=== PATIENT | male | born 1970 | race Caucasian/White ===

== ENCOUNTER 2023-08-22 21:13 | Inpatient (IN) | payer MEDICAID, SELFPAY ==
[2023-08-22 21:35] VITALS: BP 150/85; PULSE 84; RESP 16; TEMP 36.2; O2SAT 96
[2023-08-22 23:12] VITALS: BMI 27.6
--- NOTE | 2023-08-23 01:58 | PC.ADMIT ---
Maverick Goetz is a 53yo male, admitted to the unit from [facility] on CV for treatment of substance use disorder and unspecified depression. He presented to the hospital after almost fainting at [employer]. He reports that the [place] government was following him and attempting to kill him last night. Maverick is alert and oriented x4, visible and social with staff. He reports high anxiety due to leaving his dog alone in the house. States that I am worried about my dog being alone in the house for 24 hrs and I have no one to call to look after him . Pt did not sign release of information forms for individual/family, health insurance, Psychiatrist and therapist. He states that I don't have family/friends, I live alone with my dog . He reports that he is here to receive treatment for depression and cocaine/alcohol addiction. He denies SI/HI/AVH, reports being safe on the unit. Skin check done, treatment plans and safety tools initiated but not signed. Addiction and hospitalist consult ordered.
[2023-08-23 08:09] LABS: Alanine Aminotransferase 22 U/L (0-40); Alkaline Phosphatase 78 U/L (39-117); Anion Gap 10 (12-20); Aspartate Amino Transferase 23 U/L (5-37); Bilirubin Total 0.5 mg/dL (0.0-1.0); Blood Urea Nitrogen 8 mg/dL (9-16); Calcium 9.6 mg/dL (8.4-10.2); Carbon Dioxide 29 mmol/L (22-29); Chloride 107 mmol/L (96-108); Cholesterol 149 mg/dL (<200); Creatinine Clr Calc Pharmacy 133.7; Estimated Glomerular Filt Rate > 60; Glucose Fasting 108 mg/dL (60-99); HDL Cholesterol 48 mg/dL (>40); LDL Cholesterol Calculated 90 mg/dL (<100); Sodium 142 mmol/L (135-145); Total Protein 7.2 g/dL (6.5-8.0); Triglycerides 56 mg/dL (<150)
[2023-08-23 08:25] LABS: Estimated Average Glucose 88 mg/dL; Hemoglobin A1c % 4.7 % (<6.0)
[2023-08-23] MEDS: Multivitamin TABLET 1 TAB PO (08:59)
[2023-08-23] MEDS: Thiamine HCL 100 MG TABLET PO (08:59)
[2023-08-23] MEDS: Folic Acid 1 MG TABLET PO (08:59)
[2023-08-23 09:48] VITALS: BP 144/93; PULSE 86; RESP 20; TEMP 36.5; O2SAT 97
--- NOTE | 2023-08-23 10:55 | P.HPPS_ITS ---
[facility] Date of Service: 08/23/23 Chief Complaint: Depression Sources of Information: patient interviewed and chart reviewed HPI Subjective Notes: [place] Warning and 3 Day Narrative: [facility] Direct Admission and noted behavioral health consult while there: At their ED after concern by bystanders at local [employer] for feeling like he might pass out, endorsed heavy alcohol use daily and also cocaine. Last drink was 08/21/23. Also paranoid [employer] following/tracking trying to kill him which is way he was dizzy. Stated they needed to call the FBI. He was hacked after using websites for drugs. Fears will be killed if discharged. Wants treatment for dual diagnosis and also depression. Denied SI. Today: Reports hoping to get help as he feels like he has been on a hamster wheel of being depressed, anxious and irritable, utilizing alcohol and cocaine, feeling good, then feeling depressed anxious and irritable and therefore utilizing substances again. Also reports being concerned about his dog who is at home. Is calling people that he can remember their telephone numbers as he does not have access to his fall. Reports feeling positive regarding current care environment. Reports wanting to get help and try and understand what happened. Do reports he has been drinking 3-10 drinks and evening and usually on the higher end if he uses cocaine which is approximately 1 time per week by snorting. No IV drug use. Reports that the person he gets his cocaine from, utilizes test strips and therefore is confident there is no fentanyl in this. Reports he had also not slept for at least 2 days prior to recent events. Reported that he had been having conversations with Bobby in the last couple of days, and has been questioning what has been real and what is not been real and feels embarrassed regarding his comments on being tracked or targeted by the [employer]. Appreciates now that his symptoms are substance and withdrawal related combined with poor sleep. He does not have any psychotic symptoms. Adamantly denies suicidal thoughts. Feeling safe in supported. Past psychiatric history: Endorses being on Wellbutrin and Adderall in the past for ADHD. Reports Wellbutrin was not helpful. Endorses history of anxiety symptoms and low mood. Unclear how pervasive low mood has been in the past. Periods of sobriety have lasted between 45 and 60 days at a time over the last 4 years. Reports drug and alcohol use increased significantly during COVID. Never been to AA or NA, but reports likely pursuing these as what he is doing currently has not been helpful. Does not feel like he needs rehab. Also does not feel that naltrexone, Antabuse or acamprosate are needed currently. Is open to medications for mood. Social history: Rents and lives alone. Has a dog. 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 No legal issues. 23-year-old daughter with limited communication. in 2004. Single. Does endorse a trauma history, but did not want to elaborate on same. Past Psychiatric History: Endorses being on Wellbutrin and Adderall in the past for ADHD. Reports Wellbutrin was not helpful. Endorses history of anxiety symptoms and low mood. Unclear how pervasive low mood has been in the past. Periods of sobriety have lasted between 45 and 60 days at a time over the last 4 years. Reports drug and alcohol use increased significantly during COVID. Never been to AA or NA, but reports likely pursuing these as what he is doing currently has not been helpful. Does not feel like he needs rehab. Also does not feel that naltrexone, Antabuse or acamprosate are needed currently. Is open to medications for mood Medical Evaluation Reviewed: Hospitalist Jamar Pending Labwork from [facility], unrelarkable, but no tox or BAL level noted. EKG QTC 451 PMFSH Family History: Unclear if sister by suiide. Social History: Rents and lives alone. Has a dog. 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 No legal issues. 23-year-old daughter with limited communication. in 2004. Single. Substance History: Alcohol and cocaine use disorder. Periods of sobriety have lasted between 45 and 60 days at a time over the last 4 years. Reports drug and alcohol use increased significantly during COVID. Never been to AA or NA, but reports likely pursuing these as what he is doing currently has not been helpful. Does not feel like he needs rehab. Also does not feel that naltrexone, Antabuse or acamprosate are needed currently. Trauma History: Does endorse a trauma history, but did not want to elaborate on same. Diagnostics Vital Signs (24Hr): Vital Signs - 24 hr 08/22/23 21:35 08/23/23 09:48 Temperature 97.2 F 97.7 F Pulse Rate 84 86 Respiratory Rate 16 20 Blood Pressure 150/85 H 144/93 H Pulse Oximetry 96 97 Oxygen Delivery Method Room Air Room Air BMI result Body Mass Index 27.6 Labs 08/23/23 07:22 Labs: Laboratory Results - last 48 hr 08/23/23 07:22 Sodium 142 Potassium 4.0 Chloride 107 Carbon Dioxide 29 Anion Gap 10 L BUN 8 L Creatinine 0.73 Estim Creat Clear Calc 133.7 Estimated GFR > 60 Fasting Glucose 108 H Estimat Average Glucose 88 Hemoglobin A1c % 4.7 Calcium 9.6 Total Bilirubin 0.5 AST 23 ALT 22 Alkaline Phosphatase 78 Total Protein 7.2 Albumin 4.0 Triglycerides 56 Cholesterol 149 LDL Cholesterol, Calc 90 HDL Cholesterol 48 Meds/Allergies Meds Home Medications Medication Instructions Recorded Confirmed Type No Known Home Meds 08/23/23 08/23/23 History Allergies Allergies Allergy/AdvReac Type Severity Reaction Status Date / Time Penicillins Allergy Anaphylaxis Verified 08/22/23 21:51 Mental Status Exam Mental Status Exam Narrative: pleasant. Engaged. Hospital clothing. Self clarify fair. Alert and oriented. No evidence of withdrawal. Largely euthymic. Does appear to be reflective. No SI or HI. No agitation or psychosis. Insight and judgment fair Assessment & Plan Assessment & Plan (1) Mood disorder: Status: Acute Code(s): F39 - Unspecified mood [affective] disorder (2) Alcohol use disorder: Status: Acute Code(s): F10.90 - Alcohol use, unspecified, uncomplicated (3) Cocaine use disorder: Status: Acute Code(s): F14.10 - Cocaine abuse, uncomplicated Plan presents as a direct admission from [facility] Emergency Room. Presents with alcohol use disorder and cocaine use disorder and associated psychotic symptoms, that have resolved. Does appear to have an underlying mood disorder and reports a comorbid diagnosis of ADHD. Education provided around diagnosis and symptoms prior to admission. Is open to NA and AA, but not rehab or medications for substance use disorder. Is open to medications for a mood disorder. Did not respond to Wellbutrin in the past. We did discuss Strattera as a potential option given ADHD history. Was open to this. Also discussed Seroquel as needed, should he experience anxiety symptoms or psychotic symptoms. Did submit his three-day notice. Patient educated on: diagnosis, medication risk/benefits, substance abuse and therapeutic strategies Informed Consent: understands Reason for continued inpatient stay Substantial Risk for: rapid decompensation Statement Statement: I have reviewed the history and physical and performed a pertinent examination on my patient. No changes have occurred unless specified. If the History and Physical was not performed prior to admission, the Hospitalist's service will be consulted for completing the admission physical. Time Spent With Patient Time: Total time managing care of this patient today ____ minutes.
--- NOTE | 2023-08-23 13:49 | HO.PM.IMCN ---
History of Present Illness Data of Consult Service Date: 08/23/23 Primary Care Provider: None Physician HPI Reason for consult: Admission H&P Pt is a 53-year-old male with until reported PMH currently not home medications who is admitted to psychiatry unit for substance use, stress, depression, and paranoia. Patient apparently almost fainted while at [employer] and reported to EMS that the [employer] government was following him and trying to kill him. Medical consult for admission H&P. ?Patient seen at bedside where he is resting during the afternoon. Patient denies any chronic medical conditions, and reports not being on any home medications. States he is ?groggy? and would like to defer any further interview and examination. Reports he does have chronic lower back pain which is at baseline, but denies any acute medical complaints.Labs reviewed, grossly unremarkable. Review of Systems Review of Systems: Chronic lower back pain at baseline Denies any acute medical complaints at this time [facility] Social History Household Members: None Housing: House Do you presently have visiting nurse or other home services: No Patient Tobacco Use Status: Current someday Tobacco user Tobacco use type: Cigar Smoked in Last 30 Days: Yes e-Cigarette/Vaping Use: Never Used Patient Interested in Nicotine Replacement: No Patient Given Instructions on How to Stop Smoking: No Second Hand Smoke Exposure: No Use of substances other than those prescribed or required for medical reasons: Yes Substance Use Type: Crack/Cocaine, Marijuana and Caffiene Substance Use Frequency: Weekly Last Used Substance: Days (ago) Currently Displaying Signs/Symptoms of Drug Intoxication Withdrawal: No Any prior treatment program specific to substance use: No Have you been hit, kicked, punched, or otherwise hurt by someone within the past year? If so, by whom?: No Do you feel safe in your current relationship?: No Current Relationship Is there a partner from a previous relationship who is making you feel unsafe now?: No Are you made to feel afraid or neglected: No Advance Directives: No Advance Directives Information Provided: No Advance Directives on File: No Do you have thoughts of harming others: None Do you have a plan to hurt others: No Plan Recently lost weight without trying: No Nutrition Risks: No Nutritional Risk Poor oral hygiene: No Meds Allergies Allergy/AdvReac Type Severity Reaction Status Date / Time Penicillins Allergy Anaphylaxis Verified 08/22/23 21:51 Active Medications: Current Medications Acetaminophen (Acetaminophen 325 Mg Tablet) 650 mg PO Q6H PRN PRN Reason: Headache/Pain Mild Scale (1-3) Al Hydroxide/Mg Hydroxide (Magnesium Hydrox/Alum Hydrox 30 Ml Oral.Susp) 30 ml PO Q6H PRN PRN Reason: Heartburn/Nausea Folic Acid (Folic Acid 1 Mg Tablet) 1 mg PO DAILY [facility] Last Admin: 08/23/23 08:59 Dose: 1 mg Hydroxyzine HCl (Hydroxyzine Hcl 25 Mg Tablet) 25 mg PO Q6H PRN PRN Reason: Anxiety Lorazepam (Lorazepam 1 Mg Tablet) 1 mg PO Q2H PRN PRN Reason: CIWA 6-10 Lorazepam (Lorazepam 1 Mg Tablet) 2 mg PO Q2H PRN PRN Reason: CIWA 11 and above Magnesium Hydroxide (Milk Of Magnesia 30 Ml Oral.Susp) 30 ml PO DAILY PRN PRN Reason: Constipation Multivitamins/Vitamin C (Multivitamin Tablet) 1 tab PO DAILY [facility] Last Admin: 08/23/23 08:59 Dose: 1 tab Nicotine (Nicotine 21 Mg Patch.Td24) 21 mg TRANSDERMA DAILY PRN PRN Reason: smoking cessation Nicotine Polacrilex (Nicotine Polacrilex 2 Mg Gum) 4 mg BUCCAL Q2H PRN PRN Reason: Nicotine Cravings Olanzapine (Olanzapine 5 Mg Tablet) 5 mg PO TID PRN PRN Reason: agitation Thiamine HCl (Thiamine Hcl 100 Mg Tablet) 100 mg PO DAILY [facility] Last Admin: 08/23/23 08:59 Dose: 100 mg Trazodone HCl (Trazodone Hcl 50 Mg Tablet) 50 mg PO BEDTIME MRX1 PRN PRN Reason: Insomnia Home Medications Medication Instructions Recorded Confirmed Last Taken Type No Known Home Meds 08/23/23 08/23/23 Unknown History Physical Exam Vital Signs and Narrative: Vital Signs: Last Vital Signs Temp 97.7 F 08/23/23 09:48 Pulse 86 08/23/23 09:48 Resp 20 08/23/23 09:48 BP 144/93 H 08/23/23 09:48 Pulse Ox 97 08/23/23 09:48 O2 Del Method Room Air 08/23/23 09:48 BMI result Body Mass Index 27.6 Patient defers physical examination Results Labs 08/23/23 07:22 Labs: Laboratory Results - last 24 hr 08/23/23 07:22 Anion Gap 10 L Estim Creat Clear Calc 133.7 Estimated GFR > 60 Fasting Glucose 108 H Estimat Average Glucose 88 Hemoglobin A1c % 4.7 Calcium 9.6 Total Bilirubin 0.5 AST 23 ALT 22 Alkaline Phosphatase 78 Total Protein 7.2 Albumin 4.0 Triglycerides 56 Cholesterol 149 LDL Cholesterol, Calc 90 HDL Cholesterol 48 Assessment and Plan (1) Medical clearance for psychiatric admission: Status: Acute Plan Pt is a 53-year-old male with until reported PMH currently not home medications who is admitted to [facility] psychiatry unit for substance use, stress, depression, and paranoia. Patient apparently almost fainted while at [employer] and reported to EMS that the [employer] was following him and trying to kill him. Medical consult for admission H&P. Mood disorder Plan as per Psychiatry Chronic lower back pain Acetaminophen Patient otherwise denies any acute medical complaints or chronic medical conditions. Thank you for allowing us to participate in the care of this patient. Signing off at this time. Please re-consult if any acute complaints or issues arise.
[2023-08-23 19:50] VITALS: BP 155/86; PULSE 74; RESP 16; TEMP 36.1; O2SAT 96
[2023-08-23] MEDS: traZODone HCL 50 MG TABLET PO (21:41)
[2023-08-24] MEDS: Thiamine HCL 100 MG TABLET PO (08:40)
[2023-08-24] MEDS: Multivitamin TABLET 1 TAB PO (08:40)
[2023-08-24] MEDS: Folic Acid 1 MG TABLET PO (08:40)
[2023-08-24] MEDS: hydrOXYzine HCL 25 MG TABLET PO ×2 (09:53→18:24)
[2023-08-24 09:58] VITALS: BP 136/84; PULSE 77; RESP 20; TEMP 36.6; O2SAT 96
--- NOTE | 2023-08-24 14:13 | P.PNPSI_ITS ---
Subjective Subjective Date of Service: 08/24/23 Reason For Visit: Depression Subjective Notes: 3 Day Medical Problems Affecting Mental Status: No Interim History: Met with pt and d/w nursing. Slept well. Reflecting on admission and substance related psychosis with some embarrassment. Mood stable. No psychosis. Strattera non formulary, sos did not start dame. Pt preferred no meds for now and review same after sobriety and trying NA/AA after discharge Medication Compliance: Yes Side effects from medications: No Attending Groups: Intermittent Review of Systems Acute medical concerns: No Review of Systems Review of Systems Yes all other systems are reviewed and are negative Mental Status Exam Mental Status Exam Narrative: pleasant. Engaged. Hospital clothing. Self clarify fair. Alert and oriented. No evidence of withdrawal. Euthymic. Reflective. No SI or HI. No agitation or psychosis. Insight and judgment fair Diagnostics Vital Signs (24Hr): Vital Signs - 24 hr 08/23/23 19:50 08/24/23 09:58 Temperature 97 F 97.8 F Pulse Rate 74 77 Respiratory Rate 16 20 Blood Pressure 155/86 H 136/84 Pulse Oximetry 96 96 Oxygen Delivery Method Room Air Room Air BMI result Body Mass Index 27.6 Labs 08/23/23 07:22 Labs: Laboratory Results - last 48 hr 08/23/23 07:22 Sodium 142 Potassium 4.0 Chloride 107 Carbon Dioxide 29 Anion Gap 10 L BUN 8 L Creatinine 0.73 Estim Creat Clear Calc 133.7 Estimated GFR > 60 Fasting Glucose 108 H Estimat Average Glucose 88 Hemoglobin A1c % 4.7 Calcium 9.6 Total Bilirubin 0.5 AST 23 ALT 22 Alkaline Phosphatase 78 Total Protein 7.2 Albumin 4.0 Triglycerides 56 Cholesterol 149 LDL Cholesterol, Calc 90 HDL Cholesterol 48 Medications Medications Current Medications Acetaminophen (Acetaminophen 325 Mg Tablet) 650 mg PO Q6H PRN PRN Reason: Headache/Pain Mild Scale (1-3) Al Hydroxide/Mg Hydroxide (Magnesium Hydrox/Alum Hydrox 30 Ml Oral.Susp) 30 ml PO Q6H PRN PRN Reason: Heartburn/Nausea Folic Acid (Folic Acid 1 Mg Tablet) 1 mg PO DAILY [facility] Last Admin: 08/24/23 08:40 Dose: 1 mg Hydroxyzine HCl (Hydroxyzine Hcl 25 Mg Tablet) 25 mg PO Q6H PRN PRN Reason: Anxiety Last Admin: 08/24/23 09:53 Dose: 25 mg Lorazepam (Lorazepam 1 Mg Tablet) 1 mg PO Q2H PRN PRN Reason: CIWA 6-10 Lorazepam (Lorazepam 1 Mg Tablet) 2 mg PO Q2H PRN PRN Reason: CIWA 11 and above Magnesium Hydroxide (Milk Of Magnesia 30 Ml Oral.Susp) 30 ml PO DAILY PRN PRN Reason: Constipation Multivitamins/Vitamin C (Multivitamin Tablet) 1 tab PO DAILY [facility] Last Admin: 08/24/23 08:40 Dose: 1 tab Nicotine (Nicotine 21 Mg Patch.Td24) 21 mg TRANSDERMA DAILY PRN PRN Reason: smoking cessation Nicotine Polacrilex (Nicotine Polacrilex 2 Mg Gum) 4 mg BUCCAL Q2H PRN PRN Reason: Nicotine Cravings Quetiapine Fumarate (Quetiapine Fumarate 50 Mg Tablet) 50 mg PO Q6H PRN PRN Reason: psychosis Thiamine HCl (Thiamine Hcl 100 Mg Tablet) 100 mg PO DAILY [facility] Last Admin: 08/24/23 08:40 Dose: 100 mg Trazodone HCl (Trazodone Hcl 50 Mg Tablet) 50 mg PO BEDTIME MRX1 PRN PRN Reason: Insomnia Last Admin: 08/23/23 21:41 Dose: 50 mg Allergies Allergies Allergy/AdvReac Type Severity Reaction Status Date / Time Penicillins Allergy Anaphylaxis Verified 08/22/23 21:51 Assessment & Plan Assessment & Plan (1) Medical clearance for psychiatric admission: Status: Acute Code(s): Z00.8 - Encounter for other general examination (2) Mood disorder: Status: Acute Code(s): F39 - Unspecified mood [affective] disorder (3) Alcohol use disorder: Status: Acute Code(s): F10.90 - Alcohol use, unspecified, uncomplicated (4) Cocaine use disorder: Status: Acute Code(s): F14.10 - Cocaine abuse, uncomplicated Plan Presents as a direct admission from [facility] Emergency Room. Presents with alcohol use disorder and cocaine use disorder and associated psychotic symptoms, that have resolved. Does appear to have an underlying mood disorder and reports a comorbid diagnosis of ADHD. Education provided around diagnosis and symptoms prior to admission. Is open to NA and AA, but not rehab or medications for substance use disorder. Is open to medications for a mood disorder. Did not respond to Wellbutrin in the past. We did discuss Strattera as a potential option given ADHD history. Was open to this. Also discussed Seroquel as needed, should he experience anxiety symptoms or psychotic symptoms. Did submit his three-day notice. 08/23: gideon non formulary, sos did not start dame. Pt preferred no meds for now and review same after sobriety and trying NA/AA after discharge Reason for continued inpatient stay Substantial Risk for: rapid decompensation Time Spent With Patient Time: Total time managing care of this patient today ____ minutes.
--- NOTE | 2023-08-24 15:23 | MHC.RECOVRN ---
Received referral for ACS consult for pt. due to ETOH and cocaine use. T/W went to pt's room where he was resting. He reports that he is interested in recovery services but would like to defer until tomorrow as I had a lot of people in here today and I am tired. Report to ACS team for f/u.
[2023-08-24 19:45] VITALS: BP 151/94; PULSE 94; RESP 16; TEMP 36.8; O2SAT 96
[2023-08-24] MEDS: traZODone HCL 50 MG TABLET PO ×2 (21:46→23:27)
[2023-08-24] MEDS: Nicotine Polacrilex 2 MG GUM 4 MG BUCCAL (21:46)
[2023-08-24] MEDS: QUEtiapine Fumarate 50 MG TABLET PO (23:27)
[2023-08-25 08:31] VITALS: BP 142/78; PULSE 66; RESP 16; TEMP 36.4; O2SAT 96
[2023-08-25] MEDS: Folic Acid 1 MG TABLET PO (11:03)
[2023-08-25] MEDS: Thiamine HCL 100 MG TABLET PO (11:03)
[2023-08-25] MEDS: Multivitamin TABLET 1 TAB PO (11:03)
[2023-08-25] MEDS: diazePAM 5 MG TABLET PO (12:11)
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
[2023-08-25] MEDS: Nicotine Polacrilex 2 MG GUM 4 MG BUCCAL ×2 (18:04→20:43)
[2023-08-25] MEDS: LORazepam 1 MG TABLET PO ×2 (18:11→20:54)
[2023-08-25 20:28] VITALS: BP 156/88; PULSE 84; RESP 18; TEMP 36.7; O2SAT 96
--- NOTE | 2023-08-25 20:29 | MHC.RECOVSUP ---
assistant cross country coach met with this pt an discussed treatment options, RC provided this patient with contact information as this patient is going back home after his inpatient treatment here at [facility] in [place], [place]. I informed this pt to call me tomorrow so I can research what places he can enroll in when he goes back to [place].
[2023-08-25 22:45] VITALS: BP 138/86
[2023-08-25] MEDS: QUEtiapine Fumarate 50 MG TABLET PO (23:06)
[2023-08-25] MEDS: traZODone HCL 50 MG TABLET PO (23:06)
[2023-08-26 07:37] VITALS: BP 116/75; PULSE 65; RESP 14; TEMP 36.4; O2SAT 95
[2023-08-26] MEDS: Folic Acid 1 MG TABLET PO (09:29)
[2023-08-26] MEDS: Thiamine HCL 100 MG TABLET PO (09:29)
[2023-08-26] MEDS: Multivitamin TABLET 1 TAB PO (09:29)
[2023-08-26] MEDS: hydrOXYzine HCL 25 MG TABLET PO ×2 (13:10→20:13)
[2023-08-26] MEDS: Nicotine Polacrilex 2 MG GUM 4 MG BUCCAL ×4 (13:14→23:13)
--- NOTE | 2023-08-26 15:50 | P.PNPSI_ITS ---
Subjective Subjective Date of Service: 08/26/23 Reason For Visit: Depression Interim History: calm, cooperative. did not receive med ed sheets for zoloft and naltrexone yesterday. discuss end of alcohol detox. pt pleased with program here. per staff, brighter, guarded. CIWAs 1, 4, 1, 8, 4 in the past day. taking meds. affect broad on eves. Mental Status Exam Mental Status Exam Narrative: pleasant. Engaged. street clothes. Alert and oriented. No evidence of withdrawal. Euthymic. Reflective. No SI or HI. No agitation or psychosis. Insight and judgment fair Diagnostics Vital Signs (24Hr): Vital Signs - 24 hr 08/25/23 20:28 08/25/23 22:45 08/26/23 07:37 Temperature 98.1 F 97.5 F Pulse Rate 84 65 Respiratory Rate 18 14 Blood Pressure 156/88 H 138/86 116/75 Pulse Oximetry 96 95 Oxygen Delivery Method Room Air Room Air BMI result Body Mass Index 27.6 Labs 08/23/23 07:22 Medications Medications Current Medications Acetaminophen (Acetaminophen 325 Mg Tablet) 650 mg PO Q6H PRN PRN Reason: Headache/Pain Mild Scale (1-3) Al Hydroxide/Mg Hydroxide (Magnesium Hydrox/Alum Hydrox 30 Ml Oral.Susp) 30 ml PO Q6H PRN PRN Reason: Heartburn/Nausea Folic Acid (Folic Acid 1 Mg Tablet) 1 mg PO DAILY [facility] Last Admin: 08/26/23 09:29 Dose: 1 mg Hydroxyzine HCl (Hydroxyzine Hcl 25 Mg Tablet) 25 mg PO Q6H PRN PRN Reason: Anxiety Last Admin: 08/26/23 13:10 Dose: 25 mg Magnesium Hydroxide (Milk Of Magnesia 30 Ml Oral.Susp) 30 ml PO DAILY PRN PRN Reason: Constipation Multivitamins/Vitamin C (Multivitamin Tablet) 1 tab PO DAILY [facility] Last Admin: 08/26/23 09:29 Dose: 1 tab Nicotine (Nicotine 21 Mg Patch.Td24) 21 mg TRANSDERMA DAILY PRN PRN Reason: smoking cessation Nicotine Polacrilex (Nicotine Polacrilex 2 Mg Gum) 4 mg BUCCAL Q2H PRN PRN Reason: Nicotine Cravings Last Admin: 08/26/23 13:14 Dose: 4 mg Quetiapine Fumarate (Quetiapine Fumarate 50 Mg Tablet) 50 mg PO Q6H PRN PRN Reason: psychosis Last Admin: 08/25/23 23:06 Dose: 50 mg Thiamine HCl (Thiamine Hcl 100 Mg Tablet) 100 mg PO DAILY [facility] Last Admin: 08/26/23 09:29 Dose: 100 mg Trazodone HCl (Trazodone Hcl 50 Mg Tablet) 50 mg PO BEDTIME MRX1 PRN PRN Reason: Insomnia Last Admin: 08/25/23 23:06 Dose: 50 mg Allergies Allergies Allergy/AdvReac Type Severity Reaction Status Date / Time Penicillins Allergy Anaphylaxis Verified 08/22/23 21:51 Assessment & Plan Assessment & Plan (1) Medical clearance for psychiatric admission: Status: Acute Code(s): Z00.8 - Encounter for other general examination (2) Mood disorder: Status: Acute Code(s): F39 - Unspecified mood [affective] disorder (3) Alcohol use disorder: Status: Acute Code(s): F10.90 - Alcohol use, unspecified, uncomplicated (4) Cocaine use disorder: Status: Acute Code(s): F14.10 - Cocaine abuse, uncomplicated Plan Presents as a direct admission from [facility]. Presents with alcohol use disorder and cocaine use disorder and associated psychotic symptoms, that have resolved. Does appear to have an underlying mood disorder and reports a comorbid diagnosis of ADHD. Education provided around diagnosis and symptoms prior to admission. Is open to NA and AA, but not rehab or medications for substance use disorder. Is open to medications for a mood disorder. Did not respond to Wellbutrin in the past. We did discuss Strattera as a potential option given ADHD history. Was open to this. Also discussed Seroquel as needed, should he experience anxiety symptoms or psychotic symptoms. Did submit his three-day notice. 08/23: strattera non formulary, sos did not start dame. Pt preferred no meds for now and review same after sobriety and trying NA/AA after discharge 08/24: discussed medications for AUD, SSRIs for dep/anx. med ed sheets given, will discuss more tomorrow. improving. 08/25: med ed sheets not given, to be given today. ativan per [facility] protocol DCed, pt received only one mg of ativan in the past 24H. to discuss meds tomorrow. Reason for continued inpatient stay Substantial Risk for: harm to self, inability to function and rapid decompensation Time Spent With Patient Time: Total time managing care of this patient today __25__ minutes.
[2023-08-26 19:30] VITALS: BP 139/82; PULSE 87; RESP 16; TEMP 36.8; O2SAT 95
[2023-08-26] MEDS: QUEtiapine Fumarate 50 MG TABLET PO (21:16)
[2023-08-26] MEDS: traZODone HCL 50 MG TABLET PO (23:04)
[2023-08-27 04:13] VITALS: BP 140/84; PULSE 110; RESP 18
[2023-08-27 08:36] LABS: COVID-19 Test Positive (Negative); IDNOW Serial# 152EDE1D
[2023-08-27 08:49] VITALS: BP 166/87; PULSE 104; RESP 18; TEMP 37.6; O2SAT 96
[2023-08-27] MEDS: Acetaminophen 325 MG TABLET 650 MG PO ×2 (09:01→15:06)
[2023-08-27] MEDS: Thiamine HCL 100 MG TABLET PO (09:01)
[2023-08-27] MEDS: Multivitamin TABLET 1 TAB PO (09:01)
[2023-08-27] MEDS: Folic Acid 1 MG TABLET PO (09:01)
[2023-08-27] MEDS: Naltrexone HCl 50 MG TABLET PO (14:53)
[2023-08-27] MEDS: Sertraline HCL 50 MG TABLET PO (14:53)
--- NOTE | 2023-08-27 15:35 | P.PNPSI_ITS ---
Subjective Subjective Date of Service: 08/27/23 Reason For Visit: Depression Interim History: calm, cooperative. discuss meds, got med ed sheets. would like to start naltrexone 50 today and zoloft 50 today as well and discharge friday. has no insurance, hoping to get medicaid reinstated soon. discussed aftercare difficulties, pt referred to speak with [facility]. per staff, 3-day up friday. COVID +. denies AVH. atarax helpful. ANTUNEZ. showered. + meds. Mental Status Exam Mental Status Exam Narrative: pleasant. Engaged. street clothes. Alert and oriented. No evidence of withdrawal. Euthymic. Reflective. No SI or HI. No agitation or psychosis. Insight and judgment fair Diagnostics Vital Signs (24Hr): Vital Signs - 24 hr 08/26/23 19:30 08/27/23 04:13 08/27/23 08:49 Temperature 98.2 F 99.7 F Pulse Rate 87 110 H 104 H Respiratory Rate 16 18 18 Blood Pressure 139/82 140/84 H 166/87 H Pulse Oximetry 95 96 Oxygen Delivery Method Room Air Room Air BMI result Body Mass Index 27.6 Labs 08/23/23 07:22 Labs: Laboratory Results - last 48 hr 08/27/23 08:15 COVID-19 (MICHELLE) Positive A COVID-19 Clin Com See Note Medications Medications Current Medications Acetaminophen (Acetaminophen 325 Mg Tablet) 650 mg PO Q6H PRN PRN Reason: Headache/Pain Mild Scale (1-3) Last Admin: 08/27/23 15:06 Dose: 650 mg Al Hydroxide/Mg Hydroxide (Magnesium Hydrox/Alum Hydrox 30 Ml Oral.Susp) 30 ml PO Q6H PRN PRN Reason: Heartburn/Nausea Folic Acid (Folic Acid 1 Mg Tablet) 1 mg PO DAILY [facility] Last Admin: 08/27/23 09:01 Dose: 1 mg Hydroxyzine HCl (Hydroxyzine Hcl 25 Mg Tablet) 25 mg PO Q6H PRN PRN Reason: Anxiety Last Admin: 08/26/23 20:13 Dose: 25 mg Magnesium Hydroxide (Milk Of Magnesia 30 Ml Oral.Susp) 30 ml PO DAILY PRN PRN Reason: Constipation Multivitamins/Vitamin C (Multivitamin Tablet) 1 tab PO DAILY [facility] Last Admin: 08/27/23 09:01 Dose: 1 tab Naltrexone HCl (Naltrexone Hcl 50 Mg Tablet) 50 mg PO DAILY [facility] Last Admin: 08/27/23 14:53 Dose: 50 mg Nicotine (Nicotine 21 Mg Patch.Td24) 21 mg TRANSDERMA DAILY PRN PRN Reason: smoking cessation Nicotine Polacrilex (Nicotine Polacrilex 2 Mg Gum) 4 mg BUCCAL Q2H PRN PRN Reason: Nicotine Cravings Last Admin: 08/26/23 23:13 Dose: 4 mg Quetiapine Fumarate (Quetiapine Fumarate 50 Mg Tablet) 50 mg PO Q6H PRN PRN Reason: psychosis Last Admin: 08/26/23 21:16 Dose: 50 mg Sertraline HCl (Sertraline Hcl 50 Mg Tablet) 50 mg PO DAILY [facility] Last Admin: 08/27/23 14:53 Dose: 50 mg Thiamine HCl (Thiamine Hcl 100 Mg Tablet) 100 mg PO DAILY [facility] Last Admin: 08/27/23 09:01 Dose: 100 mg Trazodone HCl (Trazodone Hcl 50 Mg Tablet) 50 mg PO BEDTIME MRX1 PRN PRN Reason: Insomnia Last Admin: 08/26/23 23:04 Dose: 50 mg Allergies Allergies Allergy/AdvReac Type Severity Reaction Status Date / Time Penicillins Allergy Anaphylaxis Verified 08/22/23 21:51 Assessment & Plan Assessment & Plan (1) Medical clearance for psychiatric admission: Status: Acute Code(s): Z00.8 - Encounter for other general examination (2) Mood disorder: Status: Acute Code(s): F39 - Unspecified mood [affective] disorder (3) Alcohol use disorder: Status: Acute Code(s): F10.90 - Alcohol use, unspecified, uncomplicated (4) Cocaine use disorder: Status: Acute Code(s): F14.10 - Cocaine abuse, uncomplicated Plan Presents as a direct admission from [facility]. Presents with alcohol use disorder and cocaine use disorder and associated psychotic symptoms, that have resolved. Does appear to have an underlying mood disorder and reports a comorbid diagnosis of ADHD. Education provided around diagnosis and symptoms prior to admission. Is open to NA and AA, but not rehab or medications for substance use disorder. Is open to medications for a mood disorder. Did not respond to Wellbutrin in the past. We did discuss Strattera as a potential option given ADHD history. Was open to this. Also discussed Seroquel as needed, should he experience anxiety symptoms or psychotic symptoms. Did submit his three-day notice. 08/23: strattera non formulary, sos did not start dame. Pt preferred no meds for now and review same after sobriety and trying NA/AA after discharge 08/24: discussed medications for AUD, SSRIs for dep/anx. med ed sheets given, will discuss more tomorrow. improving. 08/25: med ed sheets not given, to be given today. ativan per [facility] protocol DCed, pt received only one mg of ativan in the past 24H. to discuss meds tomorrow. 08/26: start naltrexone 50 and zoloft 50 today. 3-day up friday. planning for friday discharge. mood improved. enjoying groups. Reason for continued inpatient stay Substantial Risk for: harm to self, inability to function and rapid decompensation Time Spent With Patient Time: Total time managing care of this patient today __25__ minutes.
[2023-08-27] MEDS: hydrOXYzine HCL 25 MG TABLET PO (20:04)
[2023-08-27] MEDS: Nicotine Polacrilex 2 MG GUM 4 MG BUCCAL (20:05)
[2023-08-27 20:15] VITALS: BP 142/89; PULSE 76; RESP 16; TEMP 36.2; O2SAT 97
[2023-08-27] MEDS: traZODone HCL 50 MG TABLET PO (21:46)
[2023-08-28 07:00] VITALS: BMI 27.5
[2023-08-28 08:00] VITALS: BP 137/80; PULSE 86; RESP 16; TEMP 36.5; O2SAT 96
[2023-08-28 08:24] VITALS: BP 137/80; PULSE 86; RESP 16; TEMP 36.5; O2SAT 96
[2023-08-28] MEDS: Thiamine HCL 100 MG TABLET PO (09:02)
[2023-08-28] MEDS: Folic Acid 1 MG TABLET PO (09:02)
[2023-08-28] MEDS: Multivitamin TABLET 1 TAB PO (09:02)
[2023-08-28] MEDS: Naltrexone HCl 50 MG TABLET PO (09:02)
[2023-08-28] MEDS: Sertraline HCL 50 MG TABLET PO (09:02)
--- NOTE | 2023-08-28 10:52 | PM.PSYDC ---
DS: Providers Provider Date of Service: 08/28/23 Date of admission: 08/22/23 21:13 Primary care physician: None Physician Consults: 08/22/23 22:00 Consult to Hospitalist Routine Comment: Consulting Provider: Hospitalist Reason For Exam: admission physical 08/22/23 22:58 Addiction Medicine Stat Consulting Provider: Addiction Covering Reason for consultation: Cocaine use disorder/addiction Has provider been notified: Yes DS: Diagnosis Discharge Diagnosis (1) Medical clearance for psychiatric admission: Status: Acute (2) Mood disorder: Status: Acute (3) Alcohol use disorder: Status: Acute (4) Cocaine use disorder: Status: Acute DS: Medications Discharge Medications Home Medications: Previous Rx's Medication Instructions Recorded folic acid 1 mg tablet 1 mg PO DAILY 30 days #30 tabs 08/28/23 hydroxyzine HCl 25 mg tablet 25 mg PO Q6H PRN Anxiety 30 days 08/28/23 #60 tabs multivitamin (Daily-Laura tablet) 1 tab PO DAILY 30 days #30 tabs 08/28/23 naltrexone 50 mg tablet 50 mg PO DAILY 30 days #30 tabs 08/28/23 nicotine (polacrilex) 2 mg gum 4 mg buccal Q2H PRN Nicotine 08/28/23 Cravings 30 days #120 ea quetiapine 50 mg tablet 50 mg PO Q6H PRN psychosis 30 days 08/28/23 #60 tabs sertraline 50 mg tablet 50 mg PO DAILY 30 days #30 tabs 08/28/23 thiamine mononitrate (vit B1) 100 100 mg PO DAILY 30 days #30 tabs 08/28/23 mg tablet Mental Status Exam Mental Status Exam Narrative: pleasant. Engaged. street clothes. Alert and oriented. No evidence of withdrawal. mood pretty good. Reflective. No SI or HI, no AVH. No agitation or psychosis. Insight and judgment fair. Data Data Completed and Pending Completed studies during hospitalization [Text1]: 08/23/23 08/27/23 07:22 08:15 Sodium 142 Potassium 4.0 Chloride 107 Carbon Dioxide 29 Anion Gap 10 L BUN 8 L Creatinine 0.73 Estim Creat Clear Calc 133.7 Estimated GFR > 60 Fasting Glucose 108 H Estimat Average Glucose 88 Hemoglobin A1c % 4.7 Calcium 9.6 Total Bilirubin 0.5 AST 23 ALT 22 Alkaline Phosphatase 78 Total Protein 7.2 Albumin 4.0 Triglycerides 56 Cholesterol 149 LDL Cholesterol, Calc 90 HDL Cholesterol 48 COVID-19 (MICHELLE) Positive A COVID-19 Clin Com See Note DS: Summary Hospital Course Hospital Course: per 08/22 admission note: [facility] Direct Admission and noted behavioral health consult while there: At their ED after concern by bystanders at local [employer] for feeling like he might pass out, endorsed heavy alcohol use daily and also cocaine. Last drink was 08/21/23. Also paranoid [email or web address] following/tracking trying to kill him which is way he was dizzy. Stated they needed to call the FBI. He was hacked after using websites for drugs. Fears will be killed if discharged. Wants treatment for dual diagnosis and also depression. Denied SI. Today: Reports hoping to get help as he feels like he has been on a hamster wheel of being depressed, anxious and irritable, utilizing alcohol and cocaine, feeling good, then feeling depressed anxious and irritable and therefore utilizing substances again. Also reports being concerned about his dog who is at home. Is calling people that he can remember their telephone numbers as he does not have access to his fall. Reports feeling positive regarding current care environment. Reports wanting to get help and try and understand what happened. Do reports he has been drinking 3-10 drinks and evening and usually on the higher end if he uses cocaine which is approximately 1 time per week by snorting. No IV drug use. Reports that the person he gets his cocaine from, utilizes test strips and therefore is confident there is no fentanyl in this. Reports he had also not slept for at least 2 days prior to recent events. Reported that he had been having conversations with Bobby in the last couple of days, and has been questioning what has been real and what is not been real and feels embarrassed regarding his comments on being tracked or targeted by the [email or web address]. Appreciates now that his symptoms are substance and withdrawal related combined with poor sleep. He does not have any psychotic symptoms. Adamantly denies suicidal thoughts. Feeling safe in supported. Past psychiatric history: Endorses being on Wellbutrin and Adderall in the past for ADHD. Reports Wellbutrin was not helpful. Endorses history of anxiety symptoms and low mood. Unclear how pervasive low mood has been in the past. Periods of sobriety have lasted between 45 and 60 days at a time over the last 4 years. Reports drug and alcohol use increased significantly during COVID. Never been to AA or NA, but reports likely pursuing these as what he is doing currently has not been helpful. Does not feel like he needs rehab. Also does not feel that naltrexone, Antabuse or acamprosate are needed currently. Is open to medications for mood. Social history: Rents and lives alone. Has a dog. 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 23-year-old daughter with limited communication. in 2004. Single. Does endorse a trauma history, but did not want to elaborate on same. Past Psychiatric History: Endorses being on Wellbutrin and Adderall in the past for ADHD. Reports Wellbutrin was not helpful. Endorses history of anxiety symptoms and low mood. Unclear how pervasive low mood has been in the past. Periods of sobriety have lasted between 45 and 60 days at a time over the last 4 years. Reports drug and alcohol use increased significantly during COVID. Never been to AA or NA, but reports likely pursuing these as what he is doing currently has not been helpful. Does not feel like he needs rehab. Also does not feel that naltrexone, Antabuse or acamprosate are needed currently. Is open to medications for mood Medical Evaluation Reviewed: Hospitalist Jamar Pending Labwork from [place], unrelarkable, but no tox or BAL level noted. EKG QTC 451 PMFSH Family History: Unclear if sister by suiide. Social History: Rents and lives alone. Has a dog. 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 23-year-old daughter with limited communication. in 2004. Single. Substance History: Alcohol and cocaine use disorder. Periods of sobriety have lasted between 45 and 60 days at a time over the last 4 years. Reports drug and alcohol use increased significantly during COVID. Never been to AA or NA, but reports likely pursuing these as what he is doing currently has not been helpful. Does not feel like he needs rehab. Also does not feel that naltrexone, Antabuse or acamprosate are needed currently. Trauma History: Does endorse a trauma history, but did not want to elaborate on same. Precis: Presents as a direct admission from [facility] Emergency Room. Presents with alcohol use disorder and cocaine use disorder and associated psychotic symptoms, that have resolved. Does appear to have an underlying mood disorder and reports a comorbid diagnosis of ADHD. Education provided around diagnosis and symptoms prior to admission. Is open to NA and AA, but not rehab or medications for substance use disorder. Is open to medications for a mood disorder. Did not respond to Wellbutrin in the past. We did discuss Strattera as a potential option given ADHD history. Was open to this. Also discussed Seroquel as needed, should he experience anxiety symptoms or psychotic symptoms. Did submit his three-day notice. 08/23: strattera non formulary, sos did not start dame. Pt preferred no meds for now and review same after sobriety and trying NA/AA after discharge 08/24: discussed medications for AUD, SSRIs for dep/anx. med ed sheets given, will discuss more tomorrow. improving. 08/25: med ed sheets not given, to be given today. ativan per [facility] protocol DCed, pt received only one mg of ativan in the past 24H. to discuss meds tomorrow. 08/26: start naltrexone 50 and zoloft 50 today. 3-day up friday. planning for friday discharge. mood improved. enjoying groups. 08/27: stable. meds reviewed, reconciled, prescribed. discharge tomorrow. 08/28: stable. discharged as per plan. Time Spent with Patient Time attestation: Total time managing care of this patient today __35__ minutes. Discharge Plan Discharge Anticipated Discharge Date/Time: 08/29/23 11:30 Patient Disposition: Home, Self-Care Discharge Diagnosis: PTSD, Chronic Alcohol Use Disorder Cocaine Use Disorder Referrals: Therapy & Psychiatry [Other] - 1 Week (Please call the phone number listed above in order to obtain outpatient mental health services. ) dee arriaga [Other] - 09/04/23 10:45 am Discharge Medications: New nicotine (polacrilex) 2 mg Gum 4 mg buccal Q2H PRN (Reason: Nicotine Cravings) 30 Days Qty: 120 1RF multivitamin [Daily-Laura] Tablet 1 tab PO DAILY 30 Days Qty: 30 0RF naltrexone 50 mg Tablet 50 mg PO DAILY 30 Days Qty: 30 0RF folic acid 1 mg Tablet 1 mg PO DAILY 30 Days Qty: 30 0RF hydroxyzine HCl 25 mg Tablet 25 mg PO Q6H PRN (Reason: Anxiety) 30 Days Qty: 60 0RF sertraline 50 mg Tablet 50 mg PO DAILY 30 Days Qty: 30 0RF quetiapine 50 mg Tablet 50 mg PO Q6H PRN (Reason: psychosis) 30 Days Qty: 60 0RF thiamine mononitrate (vit B1) 100 mg Tablet 100 mg PO DAILY 30 Days Qty: 30 0RF Discharge Orders: Discharge Order (Routine); Ordered 08/29/23 Ordered By: Ladarius Nascimento Diet: Advance to usual diet Activity on Discharge: As tolerated Stand Alone Forms: Patient Portal Discharge page, Community Support Care Plan Goals: remain safe, sober, and stable in the outpatient treatment setting Health Concerns: none Plan of Treatment: take medications as prescribed, arrange for aftercare at your local mental health clinic (contact information provided herein) as soon as you are able but not later than on month from your discharge date. Assessment: not at imminent risk of harm to self or others Discharge Date/Time: 08/29/23 11:38
[2023-08-28] MEDS: hydrOXYzine HCL 25 MG TABLET PO ×2 (15:55→23:48)
[2023-08-28 23:30] VITALS: BP 171/98; PULSE 84; RESP 18; TEMP 36.4; O2SAT 99
[2023-08-28] MEDS: Acetaminophen 325 MG TABLET 650 MG PO (23:47)
[2023-08-29 08:01] VITALS: BP 133/75; PULSE 70; RESP 18; TEMP 36.5; O2SAT 96
[2023-08-29] MEDS: Folic Acid 1 MG TABLET PO (09:35)
[2023-08-29] MEDS: Sertraline HCL 50 MG TABLET PO (09:35)
[2023-08-29] MEDS: Multivitamin TABLET 1 TAB PO (09:35)
[2023-08-29] MEDS: Thiamine HCL 100 MG TABLET PO (09:35)
[2023-08-29] MEDS: Naltrexone HCl 50 MG TABLET PO (09:35)
== END 2023-08-29 11:38 | disposition home or self-care (01) | DRG 753 ==
PROVIDERS: Psychiatry & Neurology Psychiatry; Admitting Provider Psychiatry & Neurology Psychiatry; Visit Provider Psychiatry & Neurology Psychiatry
DX: F39 Unspecified mood [affective] disorder (principal); U07.1 COVID-19; F14.150 Cocaine abuse with cocaine-induced psychotic disorder with delusions; F10.90 Alcohol use, unspecified, uncomplicated; F17.210 Nicotine dependence, cigarettes, uncomplicated; F43.12 Post-traumatic stress disorder, chronic; Z71.6 Tobacco abuse counseling; Z71.41 Alcohol abuse counseling and surveillance of alcoholic; Z71.51 Drug abuse counseling and surveillance of drug abuser; G89.29 Other chronic pain; M54.50 Low back pain, unspecified; Z79.899 Other long term (current) drug therapy
CPT/HCPCS: 36415; 80053; 80061; 83036; 87635

== ENCOUNTER → 2023-08-22 21:13 | Outpatient (BNV) | payer SELFPAY | PROVIDERS: Admitting Provider Psychiatry & Neurology Psychiatry; Visit Provider Student in an Organized Health Care Education/Training Program | DX: Z02.2 Encounter for examination for admission to residential institution (principal) | CPT/HCPCS: 99429 ==

== ENCOUNTER → 2023-08-22 21:13 | Outpatient (BNV) | payer SELFPAY | PROVIDERS: Admitting Provider Psychiatry & Neurology Psychiatry; Visit Provider Psychiatry & Neurology Psychiatry | DX: F39 Unspecified mood [affective] disorder (principal); F14.10 Cocaine abuse, uncomplicated; F10.90 Alcohol use, unspecified, uncomplicated | CPT/HCPCS: 90792; 99231; 99232 ==